=== PATIENT | female | born 1980 | race Two or more races ===

== ENCOUNTER → 2024-07-27 | Day surgery (SDC) | payer MEDICAID ==
[2024-07-20 14:12] LABS: Urine Bacteria None Seen /hpf (None Seen)
[2024-07-20 14:29] LABS: Basophils # (auto) 0.1 10 ^3/uL (0-0.2); Basophils % (auto) 0.5 % (0.0-2.0); Eosinophils # (auto) 0.4 10 ^3/uL (0-0.8); Hematocrit 41.2 % (36.0-46.0); Hemoglobin 14.1 g/dL (12.2-16.2); Lymphocytes # (auto) 2.2 10 ^3/uL (0.4-5.4); Lymphocytes % (auto) 16.1 % (10.0-50.0); Mean Corpuscular Hgb Conc. 34.1 g/dL (32.0-36.0); Mean Corpuscular Volume 93.8 fL (80.0-100.0); Monocytes # (auto) 0.6 10 ^3/uL (0-1.3); Monocytes % (auto) 4.5 % (0.0-12.0); Neutrophils # (auto) 10.6 10 ^3/uL (1.6-8.6); Neutrophils % (auto) 75.9 % (37.0-80.0); Platelet Count (auto) 344 10^3/uL (140-450); Red Cell Distribution Width 14.5 % (11.8-14.3); White Blood Cell 13.9 10^3/uL (4.4-10.8)
[2024-07-20 14:50] LABS: INR 0.98 (0.9-1.15); Partial Thromboplastin Time 27.3 SEC (24.5-34.5); Prothrombin Time 10.4 sec (9.3-11.8)
[2024-07-20 15:35] LABS: Alanine Aminotransferase 23 U/L (7-40); Albumin 4.5 g/dL (3.2-4.8); Alkaline Phosphatase 97 U/L (46-116); Anion Gap 6 (5-15); Aspartate Aminotransferase 13 U/L (13-40); BUN/Creatinine Ratio 12.3 (10.0-20.0); Bilirubin, Total 0.3 mg/dL (0.2-1.0); Calcium 9.5 mg/dL (8.7-10.4); Carbon Dioxide 27 mmol/L (20-31); Chloride 107 mmol/L (98-107); Potassium 3.7 mmol/L (3.5-5.1); Sodium 140 mmol/L (136-145); Total Protein 7.2 g/dL (5.7-8.2)
[2024-07-20 15:37] LABS: Blood Urea Nitrogen 7 mg/dL (9-23); Glucose 106 mg/dL (74-106)
[2024-07-20 15:42] LABS: Urine Blood Negative /uL (Negative); Urine Clarity Clear (Clear); Urine Color Light-Yellow (Yellow); Urine Protein, UAD TRACE (Negative); Urine Specific Gravity 1.012 (1.001-1.035); Urine Squamous Epithelial Cell FEW /hpf (<5); Urine Urobilinogen Normal (Negative); Urine WBC 2 /hpf (0 - 5)
[~2024-07-27] VITALS: Ht 144.8 cm; Wt 85.7 kg
[~2024-07-27] MED LIST: ALBU1NEB5 IN; DexAMETHasone SOD PHOS 10MG/1ML VIAL INJ ONE; MIDAZOLAM HCL 2MG/2ML 2ml VIAL (1mg/ml) ONE; ONDA-155 PO; PANT40TA2 PO; PROPOFOL 10 MG/ML 20 ML IV ONE; TRAM100C PO; fentaNYL CITRATE 100 MCG/2 ML VL ONE
--- NOTE | 2024-07-27 13:09 | DVHOP2 ---
Operative Report DATE OF OPERATION: 07/27/24 PROCEDURE: Upper Endoscopy with biopsy. PREOPERATIVE INDICATION: The patient is a 43 -year-old female undergoing endoscopy for nausea vomiting and abdominal pain POSTOPERATIVE DIAGNOSES: 1. Patient had a 1 cm sliding-type hiatal hernia with slightly irregular squamocolumnar junction and acute grade A to B erosive esophagitis with a superficial distal esophageal ulcer 2. Mild gastritis otherwise normal examination up to the 2nd and 3rd part of the duodenum PROCEDURE PERFORMED BY: Latoya Kramer GI NURSE: Dennis SCOPE: Olympus videoendoscope. ASA CLASS: 2. PREOPERATIVE MEDICATIONS: Mac sedationDr. Kruse PROCEDURE IN DETAIL: After obtaining an informed consent, the patient was placed on left lateral decubitus position. The patient was then sedated with the above medications. A bite block was placed between her teeth. The endoscope was then passed through the oropharynx, into the esophagus, and through the stomach and pylorus up to the second and third part of the duodenum. The endoscope was then withdrawn. The 2nd and 3rd part of the duodenal and the duodenal bulb were normal. Duodenal biopsies were obtained. The pre-pyloric area antrum and body showed minimal gastritis. Gastric biopsies were obtained. On retroflexion and straight on view the patient had normal fundus and cardia. The endoscope was then withdrawn into the distal distal esophagus. Patient had a 1 cm sliding-type hiatal hernia There was acute grade A to B erosive esophagitis with a superficial distal esophageal ulcer. GE junction biopsies were obtained The remaining distal and proximal esophagus and oropharynx were unremarkable The patient tolerated the procedure well without difficulty. COMPLICATIONS : None SPECIMENS: Duodenal biopsies Gastric biopsies GE junction biopsies DISPOSITION: Stable D/C to home PLAN: 1. Await for biopsy result 2. Will place pt on Protonix 40 mg p.o. daily 3. Lifestyle and dietary modifications for GERD 4. Resume GI soft diet advance as tolerated 5. Outpatient follow up with me in 4-6 weeks to review results and discuss further management LATOYA KRAMER MD Jul 27, 2024 13:09
[2024-07-27 13:45] VITALS: BP 122/78; PULSE 84; RESP 15; O2SAT 97
[2024-07-27] MEDS: LIDOCAINE VISCOUS 2% 15ML UD ONE (16:00)
== END | disposition home or self-care (01) ==
LOC: GI 10:39
PROVIDERS: ATTEND Internal Medicine Gastroenterology
DX: K21.00 Gastro-esophageal reflux disease with esophagitis, without bleeding (principal); K22.10 Ulcer of esophagus without bleeding; K44.9 Diaphragmatic hernia without obstruction or gangrene; K29.50 Unspecified chronic gastritis without bleeding; J45.909 Unspecified asthma, uncomplicated; G89.29 Other chronic pain; G43.909 Migraine, unspecified, not intractable, without status migrainosus; Z98.891 History of uterine scar from previous surgery; Z79.899 Other long term (current) drug therapy; Z95.5 Presence of coronary angioplasty implant and graft; Z90.49 Acquired absence of other specified parts of digestive tract
CPT/HCPCS: 36415; 43239; 80053; 81001; 84702; 85025; 85610; 85730; 88305; 88312; 88342; J1100; J2250; J2704; J3010; J7030

== ENCOUNTER → 2025-03-08 | Day surgery (SDC) | payer MEDICAID ==
[2025-03-01 11:38] LABS: Hematocrit 43.5 % (36.0-46.0); Hemoglobin 14.4 g/dL (12.2-16.2); Mean Corpuscular Hemoglobin 28.9 pg (28.0-32.0); Mean Corpuscular Volume 87.5 fL (80.0-100.0); Nucleated Red Blood Cells % 0.0 %
[2025-03-01 11:55] LABS: INR 0.99 (0.9-1.15); Partial Thromboplastin Time 28.2 SEC (24.5-34.5); Prothrombin Time 10.5 sec (9.3-11.8)
[2025-03-01 11:58] LABS: Alanine Aminotransferase 22 U/L (7-40); Alkaline Phosphatase 96 U/L (46-116); Anion Gap 10 (5-15); BUN/Creatinine Ratio 8.0 (10.0-20.0); Bilirubin, Total 0.4 mg/dL (0.2-1.0); Calcium 10.0 mg/dL (8.7-10.4); Carbon Dioxide 26 mmol/L (20-31); Chloride 105 mmol/L (98-107); Glucose 98 mg/dL (74-106); Potassium 4.4 mmol/L (3.5-5.1); Sodium 141 mmol/L (136-145); Total Protein 7.2 g/dL (5.7-8.2)
[2025-03-01 11:59] LABS: Albumin 4.8 g/dL (3.2-4.8); Blood Urea Nitrogen 6 mg/dL (9-23)
[~2025-03-08] VITALS: Ht 144.8 cm; Wt 85.3 kg
[~2025-03-08] MED LIST changes: -DexAMETHasone SOD PHOS 10MG/1ML VIAL INJ ONE; +FERR1TAB31 INJ; +FLUT500M2 INH; -MIDAZOLAM HCL 2MG/2ML 2ml VIAL (1mg/ml) ONE; -PANT40TA2 PO; -PROPOFOL 10 MG/ML 20 ML IV ONE; +SODIUM CHLORIDE LOCK 10 ML ONE; +TOPI25TA43 PO; -TRAM100C PO; -fentaNYL CITRATE 100 MCG/2 ML VL ONE
[2025-03-08 12:10] VITALS: RESP 16; O2SAT 100
[2025-03-08] MEDS: diphenhdrAMINE HCL 50 MG/1 ML VL ONE (12:15)
[2025-03-08] MEDS: fentaNYL CITRATE 100 MCG/2 ML VL ONE (12:15)
[2025-03-08] MEDS: MIDAZOLAM HCL 5 MG/ML-1ML VIAL ONE (12:15)
--- NOTE | 2025-03-08 12:29 | DVHOP2 ---
Operative Report DATE OF OPERATION: 03/08/25 PROCEDURE: Diagnostic Colonoscopy. PREOPERATIVE INDICATION: The patient is a 44 -year-old female undergoing colonoscopy for colon cancer screening history of rectal bleeding POSTOPERATIVE DIAGNOSES: 1. Trace internal hemorrhoids otherwise essentially completely normal colonosc opy examination up to the cecum PROCEDURE PERFORMED BY: Latoya Kramer M.D. SCOPE: Olympus videocolonoscope. ASA CLASS: 2. PREOPERATIVE MEDICATIONS: Versed 5 mg, Fentanyl 100 mcg, Benadryl 50 mg PROCEDURE IN DETAIL: After obtaining an informed consent, the patient was placed on left lateral decubitus position. She was then sedated with the above medications. A rectal examination was performed that was normal. The colonoscope was then passed through the anus into the rectosigmoid and through the descending, transverse, and ascending colon up to the cecum with visualization of the appendiceal orifice, base of the cecum and the ileocecal valve. The colonoscope was then withdrawn. No polyps or masses were seen. There was no colitis There was no clear-cut diverticular disease. Patient had a good bowel prep. On retroflexion and straight on view she had trace internal hemorrhoids The patient tolerated the procedure well without difficulty. WITHDRAWAL TIME: 6 minutes QUALITY OF THE PREP: [place] Bowel Prep score: 9. COMPLICATIONS : None SPECIMENS: None DISPOSITION: Stable D/C to home PLAN: 1. Repeat colonoscopy in 10 years 2. Resume GI soft diet advance as tolerated 3. Local anorectal hemorrhoidal care 4. Increase fluid fiber intake and stool softeners as needed 5. Outpatient follow up with me in 4-6 weeks to review results and discuss further management LATOYA KRAMER MD Mar 08, 2025 12:29
[2025-03-08 12:30] VITALS: BP 131/77; PULSE 81; RESP 14; TEMP 97.8; O2SAT 96; O2SAT 97
== END | disposition home or self-care (01) ==
LOC: GI 09:54
PROVIDERS: ATTEND Internal Medicine Gastroenterology
DX: K92.1 Melena (principal); K64.8 Other hemorrhoids; J45.909 Unspecified asthma, uncomplicated; G89.29 Other chronic pain; Z91.040 Latex allergy status; Z98.891 History of uterine scar from previous surgery; Z98.890 Other specified postprocedural states
CPT/HCPCS: 36415; 45378; 80053; 84702; 85025; 85610; 85730; J1200; J2250; J3010

== ENCOUNTER 2025-04-03 10:23 | Outpatient (CLI) | payer MEDICAID ==
[~2025-04-03 10:23] MED LIST changes: -SODIUM CHLORIDE LOCK 10 ML ONE
[2025-04-03 11:08] LABS: Anion Gap 8 (5-15); Carbon Dioxide 28 mmol/L (20-31); Chloride 105 mmol/L (98-107); Potassium 4.3 mmol/L (3.5-5.1); Sodium 141 mmol/L (136-145)
[2025-04-03 11:09] LABS: Calcium 9.4 mg/dL (8.7-10.4)
[2025-04-03 11:14] LABS: Glucose 84 mg/dL (74-106)
[2025-04-03 11:17] LABS: Hematocrit 42.5 % (36.0-46.0); Hemoglobin 14.3 g/dL (12.2-16.2); Mean Corpuscular Hemoglobin 29.5 pg (28.0-32.0); Mean Corpuscular Volume 87.8 fL (80.0-100.0); Nucleated Red Blood Cells % 0.0 %
[2025-04-03 11:23] LABS: BUN/Creatinine Ratio 7.6 (10.0-20.0); Blood Urea Nitrogen < 5 mg/dL (9-23)
[2025-04-03 11:25] LABS: Urine Protein, UAD TRACE (Negative)
== END 2025-04-03 17:00 | disposition home or self-care (01) ==
LOC: LAB 10:23
PROVIDERS: ATTEND Internal Medicine Gastroenterology
DX: R19.4 Change in bowel habit (principal); R10.9 Unspecified abdominal pain
CPT/HCPCS: 36415; 80048; 81001; 85025; 86003; 87086